=== PATIENT | male | born 1970 | race Caucasian/White ===

== ENCOUNTER 2018-09-09 09:36 | Emergency (ER) | payer BC ==
--- NOTE | 2018-09-09 10:19 | EDM.PDOC ---
ED HPI GENERAL MEDICAL PROBLEM - General Chief Complaint: General Stated Complaint: NEEDS INR CHECKED Time Seen by Provider: 09/09/18 10:03 Source of Information: Reports: Patient, Family History Limitations: Reports: No Limitations (Daughter) - History of Present Illness INITIAL COMMENTS - FREE TEXT/NARRATIVE: 48-year-old male presents to the ED for essentially a PT /INR evaluation. Patient states that he became dehydrated likely due to excessive alcohol use about a week ago and then went snowboarding. Patient states he hasn't snowboarding for 10 years. He states he snowboarding hard enough to create a lactate dependency in his Lortab to the point that he can no longer see snowboarding on the day of attempts. He was done at [facility]. The next day he couldn't hardly walk at all and he noticed that his urine was damaris reddish in color. He did go to [facility] where he was hospitalized for a week of IV fluids and apparently did have acute renal failure patient states that yesterday he weighed 220 pounds today he weighs 210 did take an extra dose of Lasix yesterday. Still has a lot of fluid to lose. He is transitioning from Lovenox for bridge therapy back to Coumadin. He is on Coumadin usually 5 mg daily for the last 2 years because of an artificial aortic heart valve. 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 This was done 2 years ago. 2 separate operations however. His urine is back to normal color. He doesn't have any aches or pains. He still aware of a significant swelling in his lower extremities. Slept flat last night with orthopnea or PND. Denies cough or sputum production. Onset: Other (Sudden development of rhabdomyolysis after starting skiing or snowboarding week ago while dehydrated.) Onset Date: 09/01/18 (Spent the last week in the hospital in [place]. Got out yesterday) Duration: Day(s): Location: Reports: Other (Developed severe rhabdomyolysis with acute renal insufficiency syndrome after snowboarding and vein up his legs quite severely while on Coumadin. This created significant rhabdomyolysis.) Quality: Reports: Other Severity: Severe (Getting better.) Improves with: Reports: Other (Has improved with IV fluids and IV Lasix therapy over the last week.) Worsens with: Reports: None ( Gained over 20 pounds of fluid while in hospital.) Context: Reports: Trauma (Trauma to his lower extremities from excessive skin snowboarding. This occurred while on Coumadin. Was dehydrated when he started out snowboarding.). Denies: Activity, Exercise, Lifting, Sick Contact Associated Symptoms: Reports: No Other Symptoms, Other (Diffuse lower extremity edema with a 22 pound weight gain since discharge from hospital) Treatments GENERATION TECHNOLOGIST: Reports: Other (see below) - Related Data Allergies Allergy/AdvReac Type Severity Reaction Status Date / Time No Known Allergies Allergy Verified 09/09/18 09:59 Home Meds: Home Meds Dofetilide 500 mcg PO BID 09/09/18 [History] Enoxaparin [Lovenox] 100 mg INJECT Q12H 09/09/18 [History] Furosemide [Lasix] 20 mg PO DAILY 09/09/18 [History] Losartan [Cozaar] 50 mg PO DAILY 09/09/18 [History] Metoprolol Succinate [Toprol XL 100mg] 100 mg PO DAILY 09/09/18 [History] Spironolactone [Aldactone] 25 mg PO DAILY 09/09/18 [History] Warfarin [Coumadin] 5 mg PO DAILY 09/09/18 [History] Past Medical History Cardiovascular History: Reports: Afib, Heart Valve Replacement, Other (See Below ) (Patient had aneurysm of his arch of aorta sore aorta and has had grafting carried out. Following this the aortic valve became quite leaky and head of the second surgery with an artificial aortic valve) - Past Surgical History Cardiovascular Surgical History: Reports: Other (See Below) Other Cardiovascular Surgeries/Procedures: artificial heart valve, internal defibrillator Social & Family History - Tobacco Use Smoking Status *Q: Never Smoker Second Hand Smoke Exposure: No - Caffeine Use Caffeine Use: Reports: Coffee - Recreational Drug Use Recreational Drug Use: No - Living Situation & Occupation Occupation: Employed ED ROS GENERAL - Review of Systems Review Of Systems: See Below Constitutional: Reports: Malaise, Weakness, Fatigue, Weight Loss (Lost 10 pounds yesterday of fluid.). Denies: Fever, Chills HEENT: Reports: No Symptoms Respiratory: Reports: No Symptoms Cardiovascular: Reports: No Symptoms, Blood Pressure Problem (Does have chronic hypertension.) Endocrine: Reports: Fatigue GI/Abdominal: Reports: No Symptoms : Reports: Frequency, Other (Urine is now clear.) Skin: Reports: No Symptoms Neurological: Reports: No Symptoms Psychiatric: Reports: No Symptoms Hematologic/Lymphatic: Reports: No Symptoms Immunologic: Reports: No Symptoms ED EXAM, GENERAL - Physical Exam Exam: See Below Exam Limited By: No Limitations General Appearance: Alert, WD/WN, No Apparent Distress Eye Exam: Bilateral Eye: Other (Left upper eyelid is mildly edematous.) Throat/Mouth: Normal Inspection, Normal Lips, Normal Teeth, Normal Oropharynx Respiratory/Chest: No Respiratory Distress, Lungs Clear, Normal Breath Sounds, No Accessory Muscle Use, Chest Non-Tender Cardiovascular: Normal Peripheral Pulses, Regular Rate, Rhythm, No Edema, No Gallop, No Murmur, No Rub, Other (Audible click due to artificial aortic valve no murmur appreciated. Well-healed midline sternotomy incision.) Peripheral Pulses: 2+: Posterior Tibial (L), Posterior Tibial (R), Dorsalis Pedis (L), Dorsalis Pedis (R) GI/Abdominal: Normal Bowel Sounds, Soft, Non-Tender, No Organomegaly, No Abnormal Bruit, No Mass, Pelvis Stable Back Exam: Normal Inspection, Full Range of Motion. No: CVA Tenderness (L), CVA Tenderness (R) Extremities: Normal Inspection, Normal Range of Motion, Non-Tender, Pedal Edema (2-3+ pitting edema bilaterally.) Neurological: Alert, Oriented, CN II-XII Intact, Normal Cognition, Normal Gait Psychiatric: Normal Affect, Normal Mood Skin Exam: Warm, Dry, Intact, Normal Color, No Rash Course - Vital Signs Last Recorded V/S: Last Vital Signs Temp 36.7 C 09/09/18 09:56 Pulse 75 09/09/18 09:56 Resp 18 09/09/18 09:56 BP 154/98 H 09/09/18 09:56 Pulse Ox 96 09/09/18 09:56 - Orders/Labs/Meds Labs: Laboratory Tests 09/09/18 09/09/18 09/09/18 Range/Units 10:30 10:30 10:30 PT 13.1 H (9.5-12.1) SECONDS INR 1.21 Sodium 139 (136-145) mEq/L Potassium 4.2 (3.5-5.1) mEq/L Chloride 102 (98-107) mEq/L Carbon Dioxide 28 (21-32) mEq/L Anion Gap 13.2 (5-15) BUN 15 (7-18) mg/dL Creatinine 1.0 (0.7-1.3) mg/dL Est Cr Clr Drug Dosing 93.28 mL/min Estimated GFR (MDRD) > 60 (>60) mL/min BUN/Creatinine Ratio 15.0 (14-18) Glucose 117 H (74-106) mg/dL Calcium 9.4 (8.5-10.1) mg/dL Magnesium (1.8-2.4) mg/dl Total Bilirubin 0.3 (0.2-1.0) mg/dL AST 156 H (15-37) U/L ALT 331 H (16-63) U/L Alkaline Phosphatase 74 (46-116) U/L NT-Pro-B Natriuret Pep 782 H (0-125) pg/mL Total Protein 7.1 (6.4-8.2) g/dl Albumin 3.3 L (3.4-5.0) g/dl Globulin 3.8 gm/dL Albumin/Globulin Ratio 0.9 L (1-2) 09/09/18 Range/Units 10:30 PT (9.5-12.1) SECONDS INR Sodium (136-145) mEq/L Potassium (3.5-5.1) mEq/L Chloride (98-107) mEq/L Carbon Dioxide (21-32) mEq/L Anion Gap (5-15) BUN (7-18) mg/dL Creatinine (0.7-1.3) mg/dL Est Cr Clr Drug Dosing mL/min Estimated GFR (MDRD) (>60) mL/min BUN/Creatinine Ratio (14-18) Glucose (74-106) mg/dL Calcium (8.5-10.1) mg/dL Magnesium 1.8 (1.8-2.4) mg/dl Total Bilirubin (0.2-1.0) mg/dL AST (15-37) U/L ALT (16-63) U/L Alkaline Phosphatase (46-116) U/L NT-Pro-B Natriuret Pep (0-125) pg/mL Total Protein (6.4-8.2) g/dl Albumin (3.4-5.0) g/dl Globulin gm/dL Albumin/Globulin Ratio (1-2) - Radiology Interpretation Free Text/Narrative:: 48-year-old male presents the ED essentially for PT/INR evaluation after bridge therapy with Lovenox while hospitalized in [place] last week. He was hospitalized for a week due to acute renal failure secondary to severe rhabdomyolysis that occurred after going snowboarding well severely dehydrated from alcohol use. This precipitated severe rhabdomyolysis requiring IV fluids and Lasix for a week. He still retained about 22 pounds of fluid since discharge yesterday. He states he has lost about 10 pounds since yesterday with increased doses of Lasix. He could sleep well with no orthopnea or PND. He has an artificial aortic valve for which he takes Coumadin for the last 2 years. Usually his doses been 5 mg daily. He is currently on 7 mg daily. Plan PT/INR and CMP will be done to assess his renal function as well as BMP and serum magnesium level. - Re-Assessments/Exams Free Text/Narrative Re-Assessment/Exam: 09/09/18 11:26 Labs are back revealing a PT of 13.1 and INR of 1.21. Sodium 139 with potassium 4.2. Cord 102 with a bicarbonate 28. And a gap is 13.2. BUN is 15 with a mean of 1.0. GFR is greater than 60. Glucose is 117 with a calcium of 9.4. Magnesium 1.8. Bilirubin is now 0.3. AST is 156 with a nail to 331. Alk phosphatase is normal at 74 BNP is elevated at 782. As the INR is still subtherapeutic and he was on 5 mg of Coumadin at all times he will continue 5 mg of Coumadin daily. However he has at least 3 days use of Lovenox and he will therefore continue Lovenox subcutaneous for the next 2 days and then have his PT /INR checked again. He will also follow-up as he plans to be back in [facility] by that time. Departure - Departure Time of Disposition: 11:32 Disposition: Home, Self-Care 01 Condition: Fair Clinical Impression: Subtherapeutic international normalized ratio (INR) - Discharge Information *PRESCRIPTION DRUG MONITORING PROGRAM REVIEWED*: Not Applicable *COPY OF PRESCRIPTION DRUG MONITORING REPORT IN PATIENT JENNIFER: Not Applicable Referrals: PCP,Not In Area [Primary Care Provider] - Forms: ED Department Discharge Additional Instructions: The INR today came back subtherapeutic at 1.21. Of course we are aiming for at least 2.5 INR. Therefore continue 5 mg a Coumadin daily and have it checked in 3 days time. You'll need to continue your bridge therapy with Lovenox therapy twice daily for the next 2 days until the Coumadin is rechecked. Her pubic INR is around 2.5. Function has completely returned to libia You still have a significant amount of fluid on board and I would therefore suggest Lasix 40 mg in the morning and then repeat dosage about between 2 and 3:00 in the afternoon for the next couple of days to get rid of the extra fluid. After that nobody will play catch up on its ownl.
== END 2018-09-09 11:40 | disposition home or self-care (01) ==
LOC: JD.ED 09:36
DX: R79.1 Abnormal coagulation profile (principal); I48.91 Unspecified atrial fibrillation; I10 Essential (primary) hypertension; Z79.01 Long term (current) use of anticoagulants; Z79.899 Other long term (current) drug therapy
CPT/HCPCS: 36415; 80053; 83735; 83880; 85610; 99282